=== PATIENT | female | born 1960 | race Caucasian/White ===

== ENCOUNTER → 2020-05-03 | Outpatient (CLI) | payer OTHER ==
--- NOTE | 2020-05-03 10:13 | CT ---
EXAMINATION TYPE: CT sinus wo con DATE OF EXAM: 05/03/2020 COMPARISON: none HISTORY: Dizziness, chronic sinusitis CT DLP: 609.[address] of the paranasal sinuses was performed in the axial and coronal planes. Bone and soft tissue settings are submitted. The paranasal sinuses demonstrate normal aeration and development. Moderate mucosal thickening of the ethmoid air cells mild thickening right frontal sinus. Remaining p aranasal sinuses are well-aerated. The osteal meatal units are patent bilaterally. The nasal septum is midline. No bony destructive changes are seen within the field of view. IMPRESSION: Moderate mucosal thickening of the ethmoid air cells mild thickening right frontal sinus. Remaining p aranasal sinuses are well-aerated.
== END | disposition home or self-care (01) ==
LOC: RADCTMAIN 09:47
PROVIDERS: ATTEND Otolaryngology
DX: J34.89 Other specified disorders of nose and nasal sinuses (principal); J32.9 Chronic sinusitis, unspecified
CPT/HCPCS: 70486

== ENCOUNTER 2020-06-11 14:21 | Emergency (ER) | payer OTHER ==
[2020-06-11 14:28] VITALS: BP 172/83; PULSE 79; RESP 20; TEMP 98.3
--- NOTE | 2020-06-11 14:43 | ED ---
General Adult HPI - General Chief complaint: Recheck/Abnormal Lab/Rx Stated complaint: Med Refill Time Seen by Provider: 06/11/20 14:31 Source: patient, RN notes reviewed Mode of arrival: ambulatory Limitations: no limitations - History of Present Illness Initial comments: 59-year-old female with a past medical history of asthma, COPD presents to the emergency room for a chief complaint of medication refills. Patient reports she has been out of her psychiatric medications for 3 days. Patient states that she has been seeing her psychiatrist over the phone. It she reports she called the pharmacy for a medication refill however was told she did not have one. When she called the psychiatrist she was told that she needed a medical review on July 22 before she got further refills. Patient reports she then called primary care who will be getting her in in 6 days. Patient reports until then she would like a medication refill on her Xanax and Remeron. Patient denies any suicidal or homicidal thoughts.Patient has no other complaints at this time including shortness of breath, chest pain, abdominal pain, nausea or vomiting, headache, or visual changes. - Related Data Previous Rx's Medication Instructions Recorded ALPRAZolam [Xanax] 1 mg PO DAILY 3 Days #3 tab 06/11/20 Mirtazapine [Remeron] 30 mg PO HS #6 tab 06/11/20 Allergies Allergy/AdvReac Type Severity Reaction Status Date / Time acetaminophen Allergy Rash/Hives Verified 06/11/20 14:28 [From Tylenol-Codeine #3] codeine Allergy Rash/Hives Verified 06/11/20 14:28 [From Tylenol-Codeine #3] ibuprofen [From Motrin] AdvReac Abdominal Verified 06/11/20 14:28 Pain Review of Systems ROS Statement: Those systems with pertinent positive or pertinent negative responses have been documented in the HPI. ROS Other: All systems not noted in ROS Statement are negative. Past Medical History Past Medical History: Asthma, COPD History of Any Multi-Drug Resistant Organisms: None Reported Past Surgical History: No Surgical Hx Reported Past Psychological History: Anxiety, Depression Smoking Status: Current every day smoker Past Alcohol Use History: None Reported Past Drug Use History: Marijuana General Exam Limitations: no limitations General appearance: alert, in no apparent distress Head exam: Present: atraumatic, normocephalic, normal inspection Eye exam: Present: normal appearance, PERRL, EOMI. Absent: scleral icterus, conjunctival injection, periorbital swelling ENT exam: Present: normal exam, mucous membranes moist Neck exam: Present: normal inspection, full ROM. Absent: tenderness, meningismus, lymphadenopathy Respiratory exam: Present: normal lung sounds bilaterally. Absent: respiratory distress, wheezes, rales, rhonchi, stridor Cardiovascular Exam: Present: regular rate, normal rhythm, normal heart sounds. Absent: systolic murmur, diastolic murmur, rubs, gallop, clicks GI/Abdominal exam: Present: soft, normal bowel sounds. Absent: distended, tenderness, guarding, rebound, rigid Neurological exam: Present: alert Psychiatric exam: Present: normal affect, normal mood Course Vital Signs 06/11/20 14:22 Temperature 98.3 F Pulse Rate 79 Respiratory 20 Rate Blood Pressure 172/83 O2 Sat by Pulse 97 Oximetry Medical Decision Making - Medical Decision Making I did have pharmacy techs verify patient's medications. Patient will be given 3 days of her Xanax as this is a controlled substance. I will refill her Remeron for 6 days until she can see primary care. Patient will follow-up with them and return for any worsening symptoms. Disposition Clinical Impression: Encounter for medication refill Disposition: HOME SELF-CARE Condition: Good Instructions (If sedation given, give patient instructions): Medicine Refill (ED) Additional Instructions: Please follow-up with your primary care provider at your appointment for further medication refills. Return here to the emergency room for any worsening symptoms. Prescriptions: Mirtazapine [Remeron] 30 mg PO HS #6 tab ALPRAZolam [Xanax] 1 mg PO DAILY 3 Days #3 tab Is patient prescribed a controlled substance at d/c from ED?: No Referrals: Nolberto Chacon DO [Primary Care Provider] - 1-2 days Time of Disposition: 14:42
== END 2020-06-11 14:52 | disposition home or self-care (01) ==
LOC: EC 14:21
DX: Z76.0 Encounter for issue of repeat prescription (principal); F17.200 Nicotine dependence, unspecified, uncomplicated; Z88.6 Allergy status to analgesic agent; Z88.5 Allergy status to narcotic agent
CPT/HCPCS: 99281

== ENCOUNTER 2022-01-09 12:59 | Emergency (ER) | payer OTHER ==
[2022-01-09 13:34] VITALS: RESP 18
--- NOTE | 2022-01-09 13:58 | XR ---
EXAMINATION TYPE: XR chest 2V DATE OF EXAM: 01/09/2022 COMPARISON: NONE HISTORY: History of COPD and tobacco use with difficulty breathing. TECHNIQUE: Frontal and lateral views of the chest are obtained. FINDINGS: There is mild underlying emphysematous change without suspicious focal air space opacity, pleural effusion, or pneumothorax seen. The cardiac silhouette size is within normal limits. The o sseous structures are demineralized. Vertebral plasty at mild compression type fracture in the mid th oracic spine is redemonstrated. Surgical changes lower cervical spine is noted. IMPRESSION: Mild chronic emphysematous change without acute pulmonary process.
--- NOTE | 2022-01-09 14:21 | ED ---
General Adult HPI - General Source: patient, RN notes reviewed, old records reviewed Mode of arrival: wheelchair Limitations: no limitations <Joseph Lewis - Last Filed: 01/09/22 14:39> <Soraya Maria - Last Filed: 01/12/22 00:06> - General Chief complaint: Shortness of Breath Stated complaint: Lung pain, SOB Time Seen by Provider: 01/09/22 13:32 - History of Present Illness Initial comments: 61 yo presenting for 5 days of increased dyspnea. Patient has had cough. She had some vomiting and diarrhea as well. This is since resolved. She was seen by her primary care physician and started on azithromycin and steroids. She does have a history of COPD. She had an outpatient test for Covid which was reported as negative. (Joseph Lewis) - Related Data Home Medications Medication Instructions Recorded Confirmed Albuterol Sulfate [Proair Hfa] 2 puff INHALATION RT-Q6H PRN 01/09/22 01/09/22 Azithromycin [Zithromax Z-pack (6 See Taper PO DIRECTED 01/09/22 01/09/22 tabs)] Sertraline [Zoloft] 200 mg PO DAILY 01/09/22 01/09/22 predniSONE [Deltasone] See Taper PO DIRECTED 01/09/22 01/09/22 Previous Rx's Medication Instructions Recorded Mirtazapine [Remeron] 30 mg PO HS #6 tab 06/11/20 Allergies Allergy/AdvReac Type Severity Reaction Status Date / Time codeine Allergy Rash/Hives Verified 01/09/22 16:35 [From Tylenol-Codeine #3] ibuprofen [From Motrin] AdvReac Abdominal Verified 01/09/22 16:35 Pain Review of Systems ROS Other: All systems not noted in ROS Statement are negative. <Joseph Lewis - Last Filed: 01/09/22 14:39> ROS Other: All systems not noted in ROS Statement are negative. <Soraya Maria - Last Filed: 01/12/22 00:06> ROS Statement: Those systems with pertinent positive or pertinent negative responses have been documented in the HPI. Past Medical History Past Medical History: Asthma, COPD History of Any Multi-Drug Resistant Organisms: None Reported Past Surgical History: Unable to Obtain Additional Past Surgical History / Comment(s): pt poor historain Past Psychological History: Anxiety, Depression Smoking Status: Current every day smoker Past Alcohol Use History: None Reported Past Drug Use History: Marijuana <Joseph Lewis - Last Filed: 01/09/22 14:39> General Exam Limitations: no limitations General appearance: alert, in no apparent distress Head exam: Present: atraumatic, normocephalic Eye exam: Present: normal appearance, PERRL ENT exam: Present: mucous membranes dry Neck exam: Present: normal inspection. Absent: tenderness, meningismus Respiratory exam: Present: decreased breath sounds. Absent: respiratory distress, wheezes, rales Cardiovascular Exam: Present: normal rhythm, tachycardia GI/Abdominal exam: Present: soft. Absent: distended, tenderness, guarding Extremities exam: Present: normal inspection, normal capillary refill. Absent: pedal edema Neurological exam: Present: alert, oriented X3, CN II-XII intact. Absent: motor sensory deficit Psychiatric exam: Present: normal affect, normal mood Skin exam: Present: warm, dry, intact. Absent: cyanosis, diaphoretic <Joseph Lewis - Last Filed: 01/09/22 14:39> Course <Joseph Lewis - Last Filed: 01/09/22 14:39> Vital Signs 01/09/22 01/09/22 01/09/22 13:00 13:22 16:27 Temperature 98.5 F Pulse Rate 116 H 94 Respiratory 20 18 18 Rate Blood Pressure 164/78 155/81 O2 Sat by Pulse 94 L Oximetry 01/09/22 18:00 Temperature 98.6 F Pulse Rate 94 Respiratory 18 Rate Blood Pressure 149/79 O2 Sat by Pulse 95 Oximetry - Reevaluation(s) Reevaluation #1: 01/09/22 1500 Patient care signed out to Dr. Maria at shift change awaiting laboratory testing, chest x-ray and reevaluation. (Joseph Lewis) EKG Findings - EKG Comments: EKG Findings:: EKG: Sinus tachycardia, no ST segment elevation. Ventricular rate of 101, GA interval 131, QRS duration 79, QTC 381 <Joseph Lewis - Last Filed: 01/09/22 14:39> Medical Decision Making - Lab Data Result diagrams: 01/09/22 14:47 01/09/22 14:47 <Soraya Maria - Last Filed: 01/12/22 00:06> - Medical Decision Making Upon arrival patient was placed in room 15. A thorough history and physical exam was performed. I did review the patient's labs which demonstrated a d- dimer 0.9. Influenza A is positive. I did discuss performing a CT with the patient's chest as her d-dimer is elevated. She does agree to study which demonstrates no evidence of PE. Small right upper lobe nodule for which the patient isalready aware that she has. Patient may continue taking the steroids. Instructed that she is outside of the window for Tamiflu. Patient understood this. Is to follow-up with primary care doctor in 2-4 days and return for any new or worsening symptoms. Patient agreed with treatment plan was discharged home in stable condition (Soraya Maria) - Lab Data Lab Results 01/09/22 01/09/22 01/09/22 Range/Units 14:47 14:47 14:47 WBC 3.8 (3.8-10.6) k/uL RBC 4.43 (3.80-5.40) m/uL Hgb 13.3 (11.4-16.0) gm/dL Hct 42.9 (34.0-46.0) % MCV 96.7 (80.0-100.0) fL MCH 30.0 (25.0-35.0) pg MCHC 31.0 (31.0-37.0) g/dL RDW 13.1 (11.5-15.5) % Plt Count 123 L (150-450) k/uL MPV 10.5 Neutrophils % 60 % Lymphocytes % 23 % Monocytes % 11 % Eosinophils % 0 % Basophils % 1 % Neutrophils # 2.3 (1.3-7.7) k/uL Lymphocytes # 0.9 L (1.0-4.8) k/uL Monocytes # 0.4 (0-1.0) k/uL Eosinophils # 0.0 (0-0.7) k/uL Basophils # 0.1 (0-0.2) k/uL Manual Slide Review Performed PT 10.1 (9.0-12.0) sec INR 0.9 (<1.2) APTT 21.1 L (22.0-30.0) sec D-Dimer 0.90 H (<0.60) mg/L FEU Sodium 142 (137-145) mmol/L Potassium 3.7 (3.5-5.1) mmol/L Chloride 112 H (98-107) mmol/L Carbon Dioxide 22 (22-30) mmol/L Anion Gap 8 mmol/L BUN 18 H (7-17) mg/dL Creatinine 0.78 (0.52-1.04) mg/dL Est GFR (CKD-EPI)AfAm >90 (>60 ml/min/1.73 sqM) Est GFR (CKD-EPI)NonAf 82 (>60 ml/min/1.73 sqM) Glucose 122 H (74-99) mg/dL Plasma Lactic Acid Vern (0.7-2.0) mmol/L Calcium 8.6 (8.4-10.2) mg/dL Total Bilirubin 0.5 (0.2-1.3) mg/dL AST 31 (14-36) U/L ALT 13 (4-34) U/L Alkaline Phosphatase 79 (38-126) U/L Troponin I (0.000-0.034) ng/mL NT-Pro-B Natriuret Pep pg/mL Total Protein 6.7 (6.3-8.2) g/dL Albumin 3.7 (3.5-5.0) g/dL Coronavirus (PCR) (Not Detectd) Influenza Type A RNA (Not Detectd) Influenza Type B (PCR) (Not Detectd) 01/09/22 01/09/22 01/09/22 Range/Units 14:47 14:47 14:47 WBC (3.8-10.6) k/uL RBC (3.80-5.40) m/uL Hgb (11.4-16.0) gm/dL Hct (34.0-46.0) % MCV (80.0-100.0) fL MCH (25.0-35.0) pg MCHC (31.0-37.0) g/dL RDW (11.5-15.5) % Plt Count (150-450) k/uL MPV Neutrophils % % Lymphocytes % % Monocytes % % Eosinophils % % Basophils % % Neutrophils # (1.3-7.7) k/uL Lymphocytes # (1.0-4.8) k/uL Monocytes # (0-1.0) k/uL Eosinophils # (0-0.7) k/uL Basophils # (0-0.2) k/uL Manual Slide Review PT (9.0-12.0) sec INR (<1.2) APTT (22.0-30.0) sec D-Dimer (<0.60) mg/L FEU Sodium (137-145) mmol/L Potassium (3.5-5.1) mmol/L Chloride (98-107) mmol/L Carbon Dioxide (22-30) mmol/L Anion Gap mmol/L BUN (7-17) mg/dL Creatinine (0.52-1.04) mg/dL Est GFR (CKD-EPI)AfAm (>60 ml/min/1.73 sqM) Est GFR (CKD-EPI)NonAf (>60 ml/min/1.73 sqM) Glucose (74-99) mg/dL Plasma Lactic Acid Vern 0.9 (0.7-2.0) mmol/L Calcium (8.4-10.2) mg/dL Total Bilirubin (0.2-1.3) mg/dL AST (14-36) U/L ALT (4-34) U/L Alkaline Phosphatase (38-126) U/L Troponin I <0.012 (0.000-0.034) ng/mL NT-Pro-B Natriuret Pep 74 pg/mL Total Protein (6.3-8.2) g/dL Albumin (3.5-5.0) g/dL Coronavirus (PCR) (Not Detectd) Influenza Type A RNA (Not Detectd) Influenza Type B (PCR) (Not Detectd) 01/09/22 01/09/22 Range/Units 14:47 14:47 WBC (3.8-10.6) k/uL RBC (3.80-5.40) m/uL Hgb (11.4-16.0) gm/dL Hct (34.0-46.0) % MCV (80.0-100.0) fL MCH (25.0-35.0) pg MCHC (31.0-37.0) g/dL RDW (11.5-15.5) % Plt Count (150-450) k/uL MPV Neutrophils % % Lymphocytes % % Monocytes % % Eosinophils % % Basophils % % Neutrophils # (1.3-7.7) k/uL Lymphocytes # (1.0-4.8) k/uL Monocytes # (0-1.0) k/uL Eosinophils # (0-0.7) k/uL Basophils # (0-0.2) k/uL Manual Slide Review PT (9.0-12.0) sec INR (<1.2) APTT (22.0-30.0) sec D-Dimer (<0.60) mg/L FEU Sodium (137-145) mmol/L Potassium (3.5-5.1) mmol/L Chloride (98-107) mmol/L Carbon Dioxide (22-30) mmol/L Anion Gap mmol/L BUN (7-17) mg/dL Creatinine (0.52-1.04) mg/dL Est GFR (CKD-EPI)AfAm (>60 ml/min/1.73 sqM) Est GFR (CKD-EPI)NonAf (>60 ml/min/1.73 sqM) Glucose (74-99) mg/dL Plasma Lactic Acid Vern (0.7-2.0) mmol/L Calcium (8.4-10.2) mg/dL Total Bilirubin (0.2-1.3) mg/dL AST (14-36) U/L ALT (4-34) U/L Alkaline Phosphatase (38-126) U/L Troponin I (0.000-0.034) ng/mL NT-Pro-B Natriuret Pep pg/mL Total Protein (6.3-8.2) g/dL Albumin (3.5-5.0) g/dL Coronavirus (PCR) Not Detected (Not Detectd) Influenza Type A RNA Detected H (Not Detectd) Influenza Type B (PCR) Not Detected (Not Detectd) Disposition <Joseph Lewis - Last Filed: 01/09/22 14:39> Is patient prescribed a controlled substance at d/c from ED?: No Time of Disposition: 17:13 <Soraya Maria - Last Filed: 01/12/22 00:06> Clinical Impression: Acute respiratory insufficiency, Influenza A, Lung nodule Disposition: HOME SELF-CARE Condition: Stable Instructions (If sedation given, give patient instructions): Influenza (ED), Pulmonary Nodules (ED) Additional Instructions: Increase fluid intake. Take Motrin and Tylenol for pain. You have a nodule on your right lung that needs to be further investigated and followed by your PCP. Return to the emergency room for any new or worsening symptoms Referrals: Nonstaff,Physician [Primary Care Provider] - 1-2 days
[2022-01-09 15:07] LABS: Basophils # (A) 0.1 k/uL (0-0.2); Basophils % (A) 1 %; Eosinophils % (A) 0 %; HCT 42.9 % (34.0-46.0); HGB 13.3 gm/dL (11.4-16.0); Lymphocytes # (A) 0.9 k/uL (1.0-4.8); Lymphocytes % (A) 23 %; MCV 96.7 fL (80.0-100.0); Mean Platelet Volume 10.5; Monocytes # (A) 0.4 k/uL (0-1.0); Monocytes % (A) 11 %; Neutrophils # (A) 2.3 k/uL (1.3-7.7); Neutrophils % (A) 60 %; Platelet Count 123 k/uL (150-450); RBC 4.43 m/uL (3.80-5.40); RDW 13.1 % (11.5-15.5); WBC 3.8 k/uL (3.8-10.6)
[2022-01-09 15:13] LABS: ALT 13 U/L (4-34); AST 31 U/L (14-36); African American GFR (CKD) >90 (>60 ml/min/1.73 sqM); Albumin 3.7 g/dL (3.5-5.0); Alkaline Phosphatase 79 U/L (38-126); Anion Gap 8 mmol/L; Blood Urea Nitrogen 18 mg/dL (7-17); Calcium 8.6 mg/dL (8.4-10.2); Carbon Dioxide 22 mmol/L (22-30); Chloride 112 mmol/L (98-107); Glucose 122 mg/dL (74-99); Non-African American GFR(CKD) 82 (>60 ml/min/1.73 sqM); Potassium 3.7 mmol/L (3.5-5.1); Sodium 142 mmol/L (137-145); Total Bilirubin 0.5 mg/dL (0.2-1.3); Total Protein 6.7 g/dL (6.3-8.2)
[2022-01-09 15:20] LABS: INR 0.9 (<1.2); Partial Thromboplastin Time 21.1 sec (22.0-30.0); Prothrombin Time 10.1 sec (9.0-12.0)
[2022-01-09 16:29] VITALS: PULSE 94
--- NOTE | 2022-01-09 16:58 | CT ---
EXAMINATION TYPE: CT chest angio for PE DATE OF EXAM: 01/09/2022 COMPARISON: None HISTORY: SOB CT DLP: 285.1 mGycm Automated exposure control for dose reduction was used. CONTRAST: Performed with IV Contrast, patient injected with 80 mL of Isovue 370. Images obtained from the thoracic inlet to the diaphragm with IV contrast. There are Three-D postproc essed images. The lungs are clear of consolidation. There is 1 cm noncalcified nodule in the anterior right upper l obe. There is minimal subpleural reticular density lateral right lung base. No pleural effusion. No p ericardial effusion. Heart size is normal. There is low density 2.5 cm right adrenal mass suggestive of benign disease. There are no hilar masses. There is no mediastinal adenopathy. There are a few bronchial lymph nodes up to 1 cm. There is intact thoracic aorta. No aneurysm or dissection. The ascending aorta measures 2.8 cm. There is normal contrast opacification of the pulmonary arteries. No filling defect. Thoracic spine shows anterior wedging with 35% loss of height of T7 and vertebroplasty. Sternum is in tact. No acute fracture seen. IMPRESSION: No evidence of pulmonary embolism. Small right upper lobe nodule. Normal heart.
[2022-01-09 18:28] VITALS: BP 149/79; TEMP 98.6
== END 2022-01-09 18:00 | disposition home or self-care (01) ==
LOC: EC 12:59
DX: J10.1 Influenza due to other identified influenza virus with other respiratory manifestations (principal); R91.1 Solitary pulmonary nodule; Z20.822 Contact with and (suspected) exposure to COVID-19; J44.9 Chronic obstructive pulmonary disease, unspecified; F41.9 Anxiety disorder, unspecified; F32.A Depression, unspecified; F12.90 Cannabis use, unspecified, uncomplicated; F17.200 Nicotine dependence, unspecified, uncomplicated; Z79.52 Long term (current) use of systemic steroids; Z79.51 Long term (current) use of inhaled steroids; Z79.899 Other long term (current) drug therapy; Z88.5 Allergy status to narcotic agent; Z88.6 Allergy status to analgesic agent
CPT/HCPCS: 36415; 93005; 85379; 83880; 80053; 83605; 84484; 85025; 85610; 85730; 87502; 87635; 71046; 71275; 99285; Q9967

== ENCOUNTER → 2024-05-24 | Outpatient (CLI) | payer OTHER ==
--- NOTE | 2024-05-24 13:57 | US ---
EXAMINATION TYPE: US groin LT DATE OF EXAM: 05/24/2024 COMPARISON: NONE CLINICAL INDICATION: Female, 63 years old with history of R59.9 ENLARGED LYMPH NODE; palpable area wi thin upper inner thigh, patient says it has been there for decades, does not grow, does not hurt, pat ient states she can't see it. Order states enlarged lymph node TECHNIQUE: Soft tissue palp FINDINGS/IMPRESSION: Tech visualizes a normal appearing mole. Very subtle indeterminate hypoechoic a denise noted within skin line measuring 0.5 x 0.7cm, no vascularity. No enlarged enlarged node seen. Co nsider dermatology consult as clinically indicated.
== END | disposition home or self-care (01) ==
LOC: RADUSWWP 13:15
PROVIDERS: ATTEND Family Medicine
DX: R59.9 Enlarged lymph nodes, unspecified

== ENCOUNTER → 2024-05-27 | Outpatient (CLI) | payer OTHER ==
--- NOTE | 2024-05-29 13:07 | MR ---
EXAMINATION TYPE: MR abdomen wo/w con DATE OF EXAM: 05/27/2024 11:34 AM CLINICAL INDICATION: Female, 63 years old with history of M25.512 PAIN IN LEFT SHOULDER R05.3 CHRONIC ,R10.9;, Abnormal CT, spot on adrenal gland COMPARISON: 01/09/2022 TECHNIQUE: Multiplanar multi-sequence imaging was performed without contrast. Post contrast imaging was performed. Post IV contrast subtraction images were also submitted for review. IV Contrast: 6 cc Gadavist FINDINGS: LOWER CHEST: No gross irregularity. ABDOMEN Liver: No evidence for cirrhosis. Signal dropout on chemical shift out of phase imaging. Gallbladder and Bile ducts: No evidence for ductal dilation, or biliary stricture or evidence of chol edocholithiasis. The gallbladder is within normal limits. Pancreas: No ductal dilation. No evidence for solid mass. Spleen: Normal for size. Adrenal glands: Indeterminate right adrenal nodule measuring 20 mm which is not definitively lose sig nal on out of phase chemical shift imaging sequences. Kidneys: Intrinsic high T1 signal cysts in the posterior aspect of the right kidney measuring 10 mm. Stomach and Bowel: No evidence for bowel wall thickening or evidence for obstruction. Retroperitoneum/Peritoneum: No evidence of pneumoperitoneum or free fluid. Vasculature: No aortic aneurysm. Musculoskeletal: The osseous structures appear intact. Lymph Nodes: No gross evidence for lymphadenopathy. Abdominal wall: Unremarkable. IMPRESSION: 1. right adrenal nodule measuring 20 mm which is not definitively lose signal on out of phase chemic al shift imaging sequences. 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 2. Hepatic steatosis. 3. Right posterior renal proteinaceous/hemorrhagic cyst. [facility], , 05/29/2024 1:05 PM
== END | disposition home or self-care (01) ==
LOC: RADMRIMAIN 10:23
PROVIDERS: ATTEND Family Medicine
DX: E27.9 Disorder of adrenal gland, unspecified
CPT/HCPCS: 74183

== ENCOUNTER → 2024-12-28 | Outpatient (CLI) | payer MEDICARE, OTHER ==
[2024-12-28 14:53] LABS: African American GFR (CKD) >90 (>60 ml/min/1.73 sqM); Blood Urea Nitrogen 14 mg/dL (7-17); Non-African American GFR(CKD) 84 (>60 ml/min/1.73 sqM)
--- NOTE | 2024-12-28 15:39 | CT ---
CT thorax with contrast HISTORY: Solitary pulmonary nodule. COMPARISON: CTA thorax dated 01/09/2022. TECHNIQUE: Multiple axial images are obtained through the thorax following IV contrast material. FINDINGS: There are moderate to marked emphysematous changes with an upper lobe predominance. There is a stable 9.5 cm juxtapleural minor fissural nodule on the right there is a new 6.8 mm nodule in the left upper lobe medially. There is a new 6 mm groundglass juxtapleural nodule of the major fi ssure on the right. There is no airspace consolidation. There is no pleural effusion or pneumothorax. The great vessels and heart are normal in size. There is no mediastinal, hilar or axillary adenopathy. Limited scanning through the upper abdomen reveals no gross abnormality. No focal osseous lesions are seen. IMPRESSION: 1. New 6.8 mm nodule left upper lobe medially. Follow-up CT thorax in 6 months is recommended to conf irm stability. 2. New 6 mm groundglass in the right lung. Follow-up CT thorax in 6 months. 3. Moderate to marked emphysematous changes. 4. No acute cardiopulmonary disease. [facility], , 12/28/2024 3:36 PM
== END | disposition home or self-care (01) ==
LOC: RADCTMAIN 14:17
PROVIDERS: ATTEND Family Medicine
DX: J44.9 Chronic obstructive pulmonary disease, unspecified (principal); J43.9 Emphysema, unspecified; R91.1 Solitary pulmonary nodule
CPT/HCPCS: 82565; 84520; 71260; 36415; Q9967

== ENCOUNTER 2025-02-15 12:36 | Day surgery (SDC) | payer MEDICARE, OTHER ==
[2025-02-13 15:31] VITALS: BMI 27.6
[~2025-02-15 12:36] MED LIST: LACTATED RINGERS 1,000 ML IV SCH; LIDOCAINE 1% (10MG/ML) FOR IV START INTRADERMA PRN
[2025-02-15] MEDS: IV FLUID CONTINUATION 1,000 ML IV ONE (13:01)
[2025-02-15 13:14] VITALS: TEMP 97.6
[2025-02-15] MEDS ORDERED: PROPOFOL 10 MG/ML 20 ML VIAL IV ONE (13:19)
[2025-02-15 14:06] VITALS: BP 159/87; PULSE 80; RESP 18
--- NOTE | 2025-02-15 21:07 | P.OP ---
Date of Procedure: 02/15/25 Preoperative Diagnosis: Positive Cologuard Postoperative Diagnosis: Normal Colon Procedure(s) Performed: Colonoscopy Anesthesia: MAC Surgeon: Shelton Tuttle Pathology: none sent Condition: stable Disposition: PACU Description of Procedure: After informed consent was obtained, the patient was placed in the left lateral position. Digital rectal exam was performed revealing normal sphincter tone and no external hemorrhoids. The colonoscope was inserted into rectum and advanced under direct visualization, without difficulty, to the cecum, where the cecal strap, appendiceal orifice, and the ileocecal valve were identified. The quality of the preparation was good. The colonoscope was then withdrawn while carefully examining the mucosa. The colonic mucosa appeared normal with normal vascularity and haustral markings. No masses, polyps, AVM/s or diverticula were seen. On retroflexed view in the rectum, there are small internal hemorrhoids. The endoscope was removed and the procedure terminated. The patient tolerated the procedure well without complications.
== END 2025-02-15 14:29 | disposition home or self-care (01) ==
LOC: ORWHC2ENDO 12:36
PROVIDERS: ATTEND Surgery
DX: Z12.11 Encounter for screening for malignant neoplasm of colon (principal); K64.8 Other hemorrhoids; E78.5 Hyperlipidemia, unspecified; M06.9 Rheumatoid arthritis, unspecified; J44.89 Other specified chronic obstructive pulmonary disease; G25.81 Restless legs syndrome; K21.9 Gastro-esophageal reflux disease without esophagitis; F41.9 Anxiety disorder, unspecified; F32.A Depression, unspecified; Z79.899 Other long term (current) drug therapy; Z85.42 Personal history of malignant neoplasm of other parts of uterus; Z88.5 Allergy status to narcotic agent; Z88.8 Allergy status to other drugs, medicaments and biological substances
CPT/HCPCS: J2704; G0121; 45378